=== PATIENT | female | born 1995 | race Caucasian/White ===

== ENCOUNTER 2021-09-17 09:43 | Emergency (ER) | payer MEDICAID, SELFPAY ==
[2021-09-17 09:47] VITALS: BP 122/77; PULSE 80; RESP 16; TEMP 37.1; O2SAT 100
--- NOTE | 2021-09-17 10:52 | PC.NURSE ---
pt left and states she is going to an urgent care. Resps even and unlabored - skin pink warm dry
== END 2021-09-17 10:52 | disposition left against medical advice (07) ==
LOC: ANHED 10:59
PROVIDERS: PCP Family Medicine
DX: Z53.21 Procedure and treatment not carried out due to patient leaving prior to being seen by health care provider (principal)
CPT/HCPCS: 99199